=== PATIENT | female | born 1985 | race Caucasian/White ===

== ENCOUNTER 2018-04-26 18:15 | Inpatient (IN) | payer MEDICAID ==
[~2018-04-26] VITALS: Ht 167.6 cm; Wt 108.9 kg
[~2018-04-26 18:15] MED LIST: IBUPROFEN600 MG PO; PERCOCET 5-3251 TAB PO
[2018-04-26 19:11] LABS: HEMATOCRIT 33.7 % (36.0-48.0); HEMOGLOBIN 10.9 g/dL (12-16); MCH 26.5 pg (26.0-34.0); MCHC 32.3 g/dL (31.0-37.0); MEAN PLATELET VOLUME 9.6 fL (7.4-10.4); RBC 4.11 10x6/uL (4.00-5.40); RDW 15.2 % (11.5-14.5); WBC 14.6 10x3/uL (4.8-10.8)
[2018-04-26 19:24] LABS: APPEARANCE CLEAR (CLEAR); BILIRUBIN NEGATIVE (NEGATIVE); COLOR YELLOW (YELLOW); GLUCOSE 50 mg/dL (NEGATIVE); KETONE NEGATIVE (NEGATIVE); NITRITE NEGATIVE (NEGATIVE); PROTEIN TRACE mg/dL (NEGATIVE); SPECIFIC GRAVITY 1.015 (1.005-1.020); UROBILINOGEN NORMAL (NORMAL)
[2018-04-26 19:26] LABS: EPITHELIAL CELLS 0-5 /hpf (0-5); RED CELLS - URINE 0-5 /hpf (0-5); WHITE CELLS - URINE 0-5 /hpf (0-5)
[2018-04-26 19:29] LABS: BACTERIA FEW /hpf (NONE SEEN)
[2018-04-26 19:33] LABS: UDS - AMPHET NEGATIVE QUAL (NEGATIVE); UDS - BARB NEGATIVE QUAL (NEGATIVE); UDS - BENZO NEGATIVE QUAL (NEGATIVE); UDS - COCAINE NEGATIVE QUAL (NEGATIVE); UDS - OPIATE NEGATIVE QUAL (NEGATIVE); UDS - PCP NEGATIVE QUAL (NEGATIVE); UDS - THC POSITIVE QUAL (NEGATIVE)
[2018-04-26] MEDS ORDERED: PRENATAL (19:41)
[2018-04-26] MEDS ORDERED: PROZAC20 MG PO (19:41)
[2018-04-26 22:37] VITALS: BP 129/76; BMI 38.8
[2018-04-27 03:18] VITALS: BP 122/66
[2018-04-27 08:05] VITALS: BP 129/67
[2018-04-27 08:08] LABS: HEMATOCRIT 30.4 % (36.0-48.0); HEMOGLOBIN 9.8 g/dL (12-16); MCH 26.2 pg (26.0-34.0); MCHC 32.2 g/dL (31.0-37.0); MCV 81.3 fL (80.0-100.0); MEAN PLATELET VOLUME 9.9 fL (7.4-10.4); PLATELET COUNT 343 10x3/uL (130-400); RBC 3.74 10x6/uL (4.00-5.40); RDW 15.1 % (11.5-14.5); WBC 20.5 10x3/uL (4.8-10.8)
[2018-04-27 08:52] VITALS: Ht 167.6 cm; Wt 108.9 kg
[2018-04-27 10:29] LABS: LYMPHOCYTES 6 % (15-50); MONOCYTES 10 % (2-11); NEUTROPHILS 83 % (40-80); PLATELET ESTIMATE NORMAL
[2018-04-28 07:30] LABS: RAPID PLASMA REAGIN Non Reactive (Non Reactive)
--- NOTE | 2018-04-28 07:54 | OP ---
PATIENT NAME: MERLENE HERNANDEZ MEDICAL RECORD: [id number] LOCATION:[id number] ADMISSION DATE:04/26/18 SURGEON: AYAZ GRANDE MD DATE OF OPERATION: 04/26/2018 PREDELIVERY DIAGNOSIS: Active labor at term. POSTDELIVERY DIAGNOSIS: Mother delivered at term. PROCEDURE: Vaginal delivery ATTENDING PHYSICIAN: Ayaz Grande MD ANESTHETIC: None. FINDINGS: Viable female , PERRY presentation. Apgars were 8 and 9. First-degree laceration without repair. Weight is still pending at the time of this dictation. Placenta spontaneous and intact. ESTIMATED BLOOD LOSS: 300 cc. DISPOSITION: Mother and infant are recovered in the room. TRANSINT:[id number] Voice Confirmation ID: [id number] DOCUMENT ID: [id number] AYAZ GRANDE MD at 0754 CC: [id number] DICTATION DATE: 04/26/182220 BREAD WRAPPING MACHINE FEEDER: 04/27/18 0020 DIS IN 04/27/18 [id number] [place] [address]
== END 2018-04-27 21:30 | disposition left against medical advice (07) | DRG 807 ==
LOC: D.LDO 18:15 → D.LD 19:20
PROVIDERS: ADMIT Obstetrics & Gynecology; ATTEND Obstetrics & Gynecology
PROC: 10E0XZZ Delivery of Products of Conception, External Approach (ICD-10-PCS; principal; 2018-04-26)
DX: O99.334 Smoking (tobacco) complicating childbirth (principal); Z37.0 Single live birth; Z3A.39 39 weeks gestation of pregnancy; O70.0 First degree perineal laceration during delivery